=== PATIENT | female | born 1990 | race African-American/Black ===

== ENCOUNTER 2021-01-19 18:27 | Emergency (ER) | payer OTHER ==
[2021-01-19] MEDS ORDERED: ACETAMINOPHEN 500 MG TABLET (FP) PO ONE (19:59)
[2021-01-19 20:35] LABS: EPI CELLS >36 /uL (0-25.1); HYALINE CASTS 7 /uL (0-3.1); PH,URINE 5.5 (5.0-8.0); URINE APPEARANCE CLOUDY; URINE BACTERIA 5657 /uL (0-1359); URINE BILIRUBIN NEGATIVE (NEGATIVE); URINE COLOR YELLOW; URINE GLUCOSE (UA) NEGATIVE (NEGATIVE); URINE KETONE NEGATIVE (NEGATIVE); URINE LEUK ESTERASE 1+ (NEGATIVE); URINE NITRITE NEGATIVE (NEGATIVE); URINE PROTEIN NEGATIVE (NEGATIVE); URINE RBC 6 /uL (0-23.9); URINE WBC 342 /uL (0-25.8)
[2021-01-19] MEDS ORDERED: ACETAMINOPHEN 500 MG TABLET (FP) ONE (21:47)
[2021-01-19 23:24] VITALS: BP 112/69; PULSE 83; TEMP 98.1
== END 2021-01-19 21:45 | disposition home or self-care (01) ==
LOC: JER 18:27
DX: O23.91 Unspecified genitourinary tract infection in pregnancy, first trimester (principal); Z3A.15 15 weeks gestation of pregnancy
CPT/HCPCS: 76815-TC; 81003; 87086; 99284-25